=== PATIENT | male | born 1970 | race Caucasian/White ===

== ENCOUNTER 2016-12-21 16:23 | Emergency (ER) | payer MEDICAID ==
[2016-12-21 16:32] VITALS: BP 158/78
[2016-12-21] MEDS ORDERED: LORazepam 1 MG Tab PO ONE ×2 (16:51→18:10)
[2016-12-21] MEDS ORDERED: Carbidopa/Levodopa 25-250 MG Tab PO ONE (16:52)
[2016-12-21] MEDS ORDERED: Carbidopa/Levodopa 25-100 MG Tab PO ONE ×2 (17:22→18:09)
--- NOTE | 2016-12-21 18:07 | EDM.PDOC ---
ED HPI GENERAL MEDICAL PROBLEM - General Chief Complaint: General Stated Complaint: [facility] Time Seen by Provider: 12/21/16 16:27 Source of Information: Reports: Patient, EMS History Limitations: Reports: No limitations - History of Present Illness INITIAL COMMENTS - FREE TEXT/NARRATIVE: The patient has early onset parkinson's and he ran out of his carbidopa/ levadopa. It is at 25/100mg. He has been running low and he has been waiting to take it for longer periods and now he is out and he is cramping up and having some contractions in his face. He denies any other symptoms to me. Onset: gradual Duration: Week(s): (1) Location: Reports: generalized Quality: Reports: Ache Severity: moderate Improves with: Reports: None Worsens with: Reports: None Associated Symptoms: Denies: chest pain, nausea/vomiting, shortness of breath Left Arm Pain Score (Numeric/FACES): 6 - Related Data Allergies Allergy/AdvReac Type Severity Reaction Status Date / Time No Known Allergies Allergy Verified 12/21/16 16:32 Home Meds: Home Meds Carbidopa/Levodopa [Carbidopa-Levo 25-250 mg Odt] 1.5 each PO ASDIRECTED [History] Carbidopa/Levodopa [Carbidopa-Levodopa 25-250] 1.5 each PO Q3HR #180 tablet [Rx] Past Medical History Neurological History: Reports: Parkinson's Social & Family History - Tobacco Use Smoking Status *Q: Never Smoker Second Hand Smoke Exposure: No - Caffeine Use Caffeine Use: Reports: None - Recreational Drug Use Recreational Drug Use: No - Living Situation & Occupation Living situation: Reports: single Occupation: unemployed ED ROS GENERAL - Review of Systems Review Of Systems: See Below Constitutional: Reports: no symptoms HEENT: Reports: No symptoms Respiratory: Reports: No Symptoms Cardiovascular: Reports: No symptoms Endocrine: Reports: no symptoms GI/Abdominal: Reports: No symptoms : Reports: no symptoms Musculoskeletal: Reports: no symptoms Skin: Reports: no symptoms Neurological: Reports: Other (Cramping in his arms and legs and face) ED EXAM, GENERAL - Physical Exam Exam: See Below Exam Limited By: No limitations General Appearance: alert, no apparent distress Ears: normal external exam Nose: normal inspection Head: atraumatic, normocephalic Neck: normal inspection Respiratory/Chest: no respiratory distress, lungs clear, normal breath sounds Cardiovascular: regular rate, rhythm, no edema, no murmur GI/Abdominal: soft, non tender, no organomegaly, no mass Back Exam: normal inspection Neurological: other (Contractions to the right side of his face and also both arms and both legs at times.) Course - Vital Signs Last Recorded V/S: Last Vital Signs Temp 97.6 F 12/21/16 16:27 Pulse 93 12/21/16 16:27 Resp 18 12/21/16 16:27 BP 158/78 H 12/21/16 16:27 Pulse Ox 98 12/21/16 16:27 - Orders/Labs/Meds Orders: Active Orders 24 hr Category Date Time Status LORazepam [Ativan] Med 12/21/16 18:10 Once 2 mg PO ONETIME ONE Meds: Medications Discontinued Medications Generic Name Dose Route Start Last Admin Trade Name Freq PRN Reason Stop Dose Admin Carbidopa/Levodopa 1.5 tab 12/21/16 16:52 12/21/16 17:26 Sinemet 25-250 Mg PO 12/21/16 16:53 Not Given ONETIME ONE Carbidopa/Levodopa 2 tab 12/21/16 17:22 12/21/16 17:26 Sinemet 25-100 Mg PO 12/21/16 17:23 2 tab ONETIME ONE Administration Carbidopa/Levodopa 4 tab 12/21/16 18:09 Sinemet 25-100 Mg PO 12/21/16 18:10 ONETIME ONE Lorazepam 1 mg 12/21/16 16:51 12/21/16 17:04 Ativan PO 12/21/16 16:52 1 mg ONETIME ONE Administration - Re-Assessments/Exams Free Text/Narrative Re-Assessment/Exam: 12/21/16 18:04 I ordered ativan 1mg by mouth and carbidopa/levadlpa 25/100mg. We do not carry the 25/250 that he has. He is doing much better now. There are no pharmacies open today. I may need to give him a couple doses until tomorrow. Departure - Departure Time of Disposition: 18:20 Disposition: Home, Self-Care 01 Condition: good Clinical Impression: Parkinsons disease Prescriptions: Carbidopa/Levodopa [Carbidopa-Levodopa 25-250] 1.5 each PO Q3HR #180 tablet Referrals: Ann Marie Sanchez [Physician] - 1 Week Forms: ED Department Discharge Additional Instructions: Take your medication as prescribed. Please return if you are worse. - My Orders Last 24 Hours: My Active Orders 12/21/16 18:10 LORazepam [Ativan] 2 mg PO ONETIME ONE - Assessment/Plan Last 24 Hours: My Active Orders 12/21/16 18:10 LORazepam [Ativan] 2 mg PO ONETIME ONE
== END 2016-12-21 18:47 | disposition home or self-care (01) ==
LOC: JD.ED 16:23
DX: G20 Parkinson's disease (principal)
CPT/HCPCS: 99283; A9270

== ENCOUNTER 2017-03-19 19:39 | Emergency (ER) | payer MEDICAID ==
[2017-03-19 19:46] VITALS: BP 130/85
[2017-03-19] MEDS ORDERED: Carbidopa/Levodopa 25-250 MG Tab PO ONE (20:26)
--- NOTE | 2017-03-19 20:29 | EDM.PDOC ---
ED HPI GENERAL MEDICAL PROBLEM - General Chief Complaint: Medication Administration Stated Complaint: Medication refill Time Seen by Provider: 03/19/17 20:10 Source of Information: Reports: Patient, RN Notes Reviewed History Limitations: Reports: No Limitations - History of Present Illness INITIAL COMMENTS - FREE TEXT/NARRATIVE: 47 year old male with history of parkinsons presents to the ED today requesting a refill of his Sinemet. He takes the 25/250 tablet, 1.5 tablets every 3 hours during the day and 2 at bedtime. He is completely out. He plans to fill the prescription in the morning after he gets paid. He has lived in [place] for nearly 6 months but has not established with a PCP. This is his 3rd visit to the ED requesting medication refill. - Related Data Allergies Allergy/AdvReac Type Severity Reaction Status Date / Time No Known Allergies Allergy Verified 03/19/17 19:46 Home Meds: Home Meds Carbidopa/Levodopa [Carbidopa-Levodopa 25-250] 1.5 each PO ASDIRECTED 03/19/17 [ History] Carbidopa/Levodopa [Carbidopa-Levodopa 25-250] 2 tab PO BID 03/19/17 [History] Carbidopa/Levodopa [Sinemet 25-250 mg] 1.5 tab PO Q3H #30 tablet 03/19/17 [Rx] Past Medical History Neurological History: Reports: Parkinson's Social & Family History - Tobacco Use Smoking Status *Q: Never Smoker Second Hand Smoke Exposure: No - Caffeine Use Caffeine Use: Reports: Soda - Recreational Drug Use Recreational Drug Use: No - Living Situation & Occupation Living situation: Reports: Single Occupation: Unemployed ED ROS GENERAL - Review of Systems Review Of Systems: See Below Constitutional: Reports: No Symptoms. Denies: Fever, Chills Neurological: Reports: Tremors ED EXAM, GENERAL - Physical Exam Exam: See Below Exam Limited By: No Limitations General Appearance: Alert, WD/WN, No Apparent Distress Respiratory/Chest: No Respiratory Distress, Lungs Clear, Normal Breath Sounds Cardiovascular: Regular Rate, Rhythm Neurological: Alert, Oriented, CN II-XII Intact, Normal Cognition, Normal Gait, Other (tremor, more notable on right side. ambulates with steady gait ) Course - Vital Signs Last Recorded V/S: Last Vital Signs Temp 96.9 F 03/19/17 19:43 Pulse 98 03/19/17 19:43 Resp 18 03/19/17 19:43 BP 130/85 03/19/17 19:43 Pulse Ox 98 03/19/17 19:43 - Orders/Labs/Meds Meds: Medications Discontinued Medications Generic Name Dose Route Start Last Admin Trade Name Estela PRN Reason Stop Dose Admin Carbidopa/Levodopa 2 tab 03/19/17 20:26 Sinemet 25-250 Mg PO 03/19/17 20:27 ONETIME ONE - Re-Assessments/Exams Free Text/Narrative Re-Assessment/Exam: We carry Sinimet 25/100 tabs. Will give 2 tabs in the ED and discharge with a prescription. He was educated on the importance of establishing with a primary care. Departure - Departure Time of Disposition: 20:27 Disposition: Home, Self-Care 01 Condition: Good Clinical Impression: Parkinsons disease - Discharge Information Prescriptions: Carbidopa/Levodopa [Sinemet 25-250 mg] 1.5 tab PO Q3H #30 tablet Instructions: Parkinson Disease, [id number] Referrals: PCP,Not In Area [Primary Care Provider] - Forms: ED Department Discharge Additional Instructions: Follow-up in our Medical Clinic next week, call [phone] to set up an appointment to establish care with one of our primary care providers Our business office can help you with finances since you do not have insurance Return to ER as needed
[2017-03-19] MEDS ORDERED: Carbidopa/Levodopa 25-100 MG Tab PO ONE (20:42)
== END 2017-03-19 20:50 | disposition home or self-care (01) ==
LOC: JD.ED 19:39
DX: G20 Parkinson's disease (principal)
CPT/HCPCS: 99282; A9270; 99283

== ENCOUNTER 2017-03-23 18:04 | Emergency (ER) | payer MEDICAID ==
[2017-03-23 18:09] VITALS: BP 129/90
[2017-03-23] MEDS ORDERED: LORazepam 2 MG/ML MDV IVPUSH ONE (18:58)
[2017-03-23] MEDS ORDERED: Carbidopa/Levodopa 25-100 MG Tab PO ONE (19:09)
--- NOTE | 2017-03-23 19:38 | EDM.PDOC ---
ED HPI GENERAL MEDICAL PROBLEM - General Chief Complaint: Behavioral/Psych Stated Complaint: [facility] Time Seen by Provider: 03/23/17 18:37 Source of Information: Reports: Patient, Old Records (recent ER visits) History Limitations: Reports: No Limitations - History of Present Illness INITIAL COMMENTS - FREE TEXT/NARRATIVE: 47-year-old male presents for evaluation treatment of anxiety. Patient arrives via [place] [facility]. States that he has been suffering from anxiety for several years. Reports associated symptoms of chest palpitations and shakiness. Patient states that he has Parkinson's. He isn't seen in the ER on several occasions for refill of his Parkinson's medications. He states he has been out for 2 days. He has been unable to refill his medication as he is not able to afford it. He has not stepped establish with a primary care provider. - Related Data Allergies Allergy/AdvReac Type Severity Reaction Status Date / Time No Known Allergies Allergy Verified 03/26/17 19:36 Home Meds: Home Meds Carbidopa/Levodopa [Carbidopa-Levodopa 25-250] 1.5 tab PO Q3H 03/19/17 [History] Carbidopa/Levodopa [Carbidopa-Levodopa 25-250] 2 each PO BEDTIME 03/19/17 [ History] Past Medical History Neurological History: Reports: Parkinson's Psychiatric History: Reports: Anxiety - Infectious Disease History Infectious Disease History: Reports: Hepatitis C Social & Family History - Tobacco Use Smoking Status *Q: Never Smoker Second Hand Smoke Exposure: No - Caffeine Use Caffeine Use: Reports: Tea - Recreational Drug Use Recreational Drug Use: No - Living Situation & Occupation Living situation: Reports: Single Occupation: Unemployed ED ROS GENERAL - Review of Systems Review Of Systems: See Below Neurological: Reports: Tremors Psychiatric: Reports: Anxiety ED EXAM, BEHAVIORAL HEALTH - Physical Exam Exam: See Below Exam Limited By: No Limitations General Appearance: Alert, WD/WN, No Apparent Distress Respiratory/Chest: No Respiratory Distress, Lungs Clear Cardiovascular: Normal Peripheral Pulses, Regular Rate, Rhythm Neurological: Alert, Normal Mood/Affect, Normal Cognition Psychiatric: Alert, Normal Affect, Normal Cognition, Oriented Skin Exam: Warm, Dry, Normal color COURSE, BEHAVIORAL HEALTH COMP - Course Vital Signs: Last Vital Signs Temp 37.1 C 03/23/17 18:07 Pulse 105 H 03/23/17 18:07 Resp 20 03/23/17 18:07 BP 129/90 03/23/17 18:07 Pulse Ox 95 03/23/17 18:07 Orders, Labs, Meds: Medications Discontinued Medications Generic Name Dose Route Start Last Admin Trade Name Estela PRN Reason Stop Dose Admin Carbidopa/Levodopa 2 tab 03/23/17 19:09 03/23/17 19:38 Sinemet 25-100 Mg PO 03/23/17 19:10 2 tab ONETIME ONE Administration Carbidopa/Levodopa 5 tab 03/23/17 20:43 03/23/17 20:55 Sinemet 10-100 Mg PO 03/23/17 20:44 5 tab ONETIME ONE Administration Lorazepam 1 mg 03/23/17 18:58 03/23/17 19:36 Ativan IVPUSH 03/23/17 18:59 1 mg ONETIME ONE Administration Re-Assessment/Re-Exam: 20:42 Patient is feeling improved after ativan. I will give him 5 sinamet to take home from our supply to get him through until tomorrow. Patient reports he missed his appointment to establish care today but has one scheduled for tomorrow with a provider at [facility]. Discharge instructions as documented. Departure - Departure Time of Disposition: 20:46 Disposition: Home, Self-Care 01 Condition: Good Clinical Impression: Parkinsons disease, Anxiety - Discharge Information Instructions: Parkinson Disease, [id number] Referrals: PCP,Not In Area [Primary Care Provider] - Forms: ED Department Discharge Additional Instructions: You've been provided with some medication for your Parkinson's here in the ER to take home. Take your medication as prescribed. Follow-up with family medicine tomorrow as planned. Please return to ER if your symptoms change or worsen.
[2017-03-23] MEDS ORDERED: Carbidopa/Levodopa 10-100 MG Tab PO ONE (20:43)
== END 2017-03-23 21:00 | disposition home or self-care (01) ==
LOC: JD.ED 18:04
DX: G20 Parkinson's disease (principal); F41.9 Anxiety disorder, unspecified
CPT/HCPCS: 96374; 99284; A9270; J2060

== ENCOUNTER 2017-03-26 19:29 | Emergency (ER) | payer MEDICAID ==
[2017-03-26 19:36] VITALS: BP 143/85
[2017-03-26] MEDS ORDERED: Carbidopa/Levodopa 25-100 MG Tab PO STA (20:08)
[2017-03-26] MEDS ORDERED: LORazepam 1 MG Tab PO STA (20:09)
--- NOTE | 2017-03-26 20:16 | EDM.PDOC ---
ED HPI GENERAL MEDICAL PROBLEM - General Chief Complaint: Behavioral/Psych Stated Complaint: [facility] Time Seen by Provider: 03/26/17 19:39 Source of Information: Reports: Patient, Old Records, RN Notes Reviewed History Limitations: Reports: No Limitations - History of Present Illness INITIAL COMMENTS - FREE TEXT/NARRATIVE: Medical records indicate that the patient was seen in this ED 11/23/2016 for a refill of his Sinemet 25/250. He was given a prescription, +2 refills. He was then seen again in this ED on 12/21/2016, again requesting a refill of his Sinemet 25/250. He was given a prescription for 180 tablets, and referred to Dr. Sanchez is a PCP. He was again seen in this ED 03/19/2017, where he received a refill prescription for 30 tablets of Sinemet 25/250, and again referred to the clinic. He was seen again in this ED on 03/23/2017, complaining of anxiety. He was given a dose of Sinemet and again referred to the clinic. The patient now presents complaining of anxiety and exacerbation of his Parkinson tremor, since yesterday. He reports that his anxiety is causing him to have dyspnea and racing thoughts. He states that he followed up with Dr. Sanchez 2 days ago and was prescribed both Sinemet and Zoloft, but that he did not fill the prescriptions because he does not have any money, and does not expect to have any money until April 04. His last dose of Sinemet was 2 days ago. He has not previously been on Zoloft. He is requesting that we give him Sinemet as well as something (Ativan) for anxiety, to take home. - Related Data Allergies Allergy/AdvReac Type Severity Reaction Status Date / Time No Known Allergies Allergy Verified 03/26/17 19:36 Home Meds: Home Meds Carbidopa/Levodopa [Carbidopa-Levodopa 25-250] 1.5 tab PO Q3H 03/19/17 [History] Carbidopa/Levodopa [Carbidopa-Levodopa 25-250] 2 each PO BEDTIME 03/19/17 [ History] Past Medical History Neurological History: Reports: Parkinson's (since 2006) Psychiatric History: Reports: Anxiety, Depression - Infectious Disease History Infectious Disease History: Reports: Hepatitis C - Past Surgical History Musculoskeletal Surgical History: Reports: ORIF (Left wrist) Social & Family History - Tobacco Use Smoking Status *Q: Never Smoker Second Hand Smoke Exposure: No - Caffeine Use Caffeine Use: Reports: Tea - Alcohol Use Alcohol Use History: No - Recreational Drug Use Recreational Drug Use: No - Living Situation & Occupation Living situation: Reports: (), with Family (Cousin) Occupation: Unemployed ED ROS GENERAL - Review of Systems Review Of Systems: See Below Constitutional: Reports: No Symptoms HEENT: Reports: No Symptoms Respiratory: Reports: Shortness of Breath Cardiovascular: Reports: No Symptoms Endocrine: Reports: No Symptoms GI/Abdominal: Reports: No Symptoms : Reports: No Symptoms Musculoskeletal: Reports: No Symptoms Skin: Reports: No Symptoms Neurological: Reports: Tremors Psychiatric: Reports: Anxiety Hematologic/Lymphatic: Reports: No Symptoms Immunologic: Reports: No Symptoms ED EXAM, GENERAL - Physical Exam Exam: See Below Exam Limited By: No Limitations General Appearance: Alert, WD/WN, No Apparent Distress Eye Exam: Bilateral Eye: Normal Inspection Ears: Normal External Exam, Hearing Grossly Normal Nose: Normal Inspection, No Blood Throat/Mouth: Normal Inspection, Normal Lips, Normal Voice, No Airway Compromise Head: Atraumatic, Normocephalic Neck: Normal Inspection, Full Range of Motion Respiratory/Chest: No Respiratory Distress, Lungs Clear, Normal Breath Sounds, No Accessory Muscle Use Cardiovascular: Normal Peripheral Pulses, Regular Rate, Rhythm, No Gallop, No JVD, No Murmur, No Rub Peripheral Pulses: 4+: Radial (L), Radial (R) GI/Abdominal: Normal Bowel Sounds, Soft, Non-Tender, No Organomegaly, No Distention, No Abnormal Bruit, No Mass (Male) Exam: Deferred Rectal (Males) Exam: Deferred Back Exam: Normal Inspection, Full Range of Motion, NT Extremities: Normal Inspection, Normal Range of Motion, No Pedal Edema, Normal Capillary Refill Neurological: Alert, Oriented, Normal Cognition, No Motor/Sensory Deficits, Other (Resting tremor primarily involving the right hand and right foot) Psychiatric: Normal Affect Skin Exam: Warm, Dry, Intact, Normal Color, No Rash Lymphatic: No Adenopathy Course - Vital Signs Last Recorded V/S: Last Vital Signs Temp 36.6 C 03/26/17 19:33 Pulse 97 03/26/17 19:33 Resp 18 03/26/17 19:33 BP 143/85 H 03/26/17 19:33 Pulse Ox 95 03/26/17 19:33 - Orders/Labs/Meds Meds: Medications Discontinued Medications Generic Name Dose Route Start Last Admin Trade Name Estela WARE Reason Stop Dose Admin Carbidopa/Levodopa 1 tab 03/26/17 20:08 03/26/17 20:51 Sinemet 25-100 Mg PO 03/26/17 20:09 1 tab ONETIME STA Administration Lorazepam 1 mg 03/26/17 20:09 03/26/17 20:51 Ativan PO 03/26/17 20:10 1 mg ONETIME STA Administration - Re-Assessments/Exams Free Text/Narrative Re-Assessment/Exam: 03/27/17 20:07 The patient ordinarily takes Sinemet 25/250 several times a day, however, this facility does not carry that formulation. We have the 25/100 tablets. I have ordered 2 tablets, along with 1 mg of oral Ativan, however, I explained to the patient that we cannot dispense medications for the patient to take home. He already has prescriptions for Sinemet and Zoloft, he said he does not have the money to buy them. I will refer him to social work job titles, as the patient likely meets criterion for disability and would therefore be eligible for disability benefits. Departure - Departure Time of Disposition: 20:12 Disposition: Home, Self-Care 01 Condition: Good Clinical Impression: Parkinson disease, symptomatic, Anxiety - Discharge Information Instructions: Panic Attacks, [id number], Parkinson Disease, [id number] Referrals: Ann Marie Sanchez [Physician] - Forms: ED Department Discharge Additional Instructions: You were seen in the emergency room for symptoms of Parkinson disease and anxiety. You have been given a single dose of Sinemet, and a single dose of Ativan. The emergency room cannot, however, dispense these medicines for you to take home. Please contact [facility] Personnel Administrator at [phone] to discuss getting disability benefits. Fill your prescriptions for Sinemet and Zoloft at the next available opportunity , and take them as prescribed. If any other problems, please do not hesitate to return to the ER.
== END 2017-03-26 20:58 | disposition home or self-care (01) ==
LOC: JD.ED 19:29
DX: F41.9 Anxiety disorder, unspecified (principal); G20 Parkinson's disease; F32.9 Major depressive disorder, single episode, unspecified; Z98.890 Other specified postprocedural states
CPT/HCPCS: 99283; A9270

== ENCOUNTER 2017-03-27 17:09 | Emergency (ER) | payer MEDICAID ==
[2017-03-27 17:23] VITALS: BP 126/106
[2017-03-27] MEDS ORDERED: LORazepam 2 MG/ML MDV IVPUSH ONE (18:25)
[2017-03-27] MEDS ORDERED: Carbidopa/Levodopa 25-250 MG Tab PO ONE (18:26)
--- NOTE | 2017-03-27 18:48 | EDM.PDOC ---
<Andreea Walker - Last Filed: 03/27/17 19:16> ED HPI GENERAL MEDICAL PROBLEM - General Chief Complaint: Behavioral/Psych Stated Complaint: [facility] Time Seen by Provider: 03/27/17 17:26 Source of Information: Reports: Patient History Limitations: Reports: No Limitations - History of Present Illness INITIAL COMMENTS - FREE TEXT/NARRATIVE: 47 y/o M brought in by ambulance. Patient has a hx of Parkinson's. Has been seen multiple times this week. Is out of his carbidopa/levodopa. Feeling very anxious. States he lives with his cousin but his cousin has been out of town for a week. Arturo has been out of his meds x at least a week. He isn't really able to explain to me why he hasn't been able to get them. States his tremor is worse than ever. Has been feeling extremely anxious this week. Has had multiple ED visits for anxiety. He is extremely anxious at the time of my interview which limits the history. Told nurse that he hit himself with a bat earlier today. Was not specifically suicidal, but can't explain to me why he did this. Denies recent illness. No recent fever or injury. States his clinic provider prescribed zoloft but he has also been unable to fill this med. Patient is crying, anxious, doesn't answer all of my questions which limits the history at this time. Denied hallucinations or hearing voices to me. Head Pain Score (Numeric/FACES): 5 - Related Data Allergies Allergy/AdvReac Type Severity Reaction Status Date / Time No Known Allergies Allergy Verified 03/27/17 17:17 Home Meds: Home Meds Carbidopa/Levodopa [Carbidopa-Levodopa 25-250] 1.5 tab PO Q3H 03/19/17 [History] Carbidopa/Levodopa [Carbidopa-Levodopa 25-250] 2 each PO BEDTIME 03/19/17 [ History] Past Medical History Neurological History: Reports: Parkinson's Psychiatric History: Reports: Anxiety, Depression - Infectious Disease History Infectious Disease History: Reports: Hepatitis C - Past Surgical History Musculoskeletal Surgical History: Reports: ORIF Social & Family History - Tobacco Use Smoking Status *Q: Unknown Ever Smoked Second Hand Smoke Exposure: No - Caffeine Use Caffeine Use: Reports: Tea - Recreational Drug Use Recreational Drug Use: Yes Drug Use in Last 12 Months: No - Living Situation & Occupation Living situation: Reports: (), with Family (Cousin) Occupation: Unemployed ED ROS GENERAL - Review of Systems Review Of Systems: See Below Constitutional: Denies: Fever HEENT: Reports: No Symptoms Respiratory: Denies: Cough Cardiovascular: Denies: Chest Pain GI/Abdominal: Denies: Vomiting Neurological: Reports: Tremors Psychiatric: Reports: Agitation, Anxiety ED EXAM, BEHAVIORAL HEALTH - Physical Exam Exam: See Below Exam Limited By: No Limitations General Appearance: Alert, WD/WN, Anxious, Moderate Distress Eye Exam: Bilateral Eye: Normal Inspection Ears: Normal External Exam Nose: Normal Inspection, Normal Mucosa, No Blood Throat/Mouth: Normal Inspection, Normal Voice Head: Atraumatic, Normocephalic Neck: Normal Inspection Respiratory/Chest: No Respiratory Distress, Lungs Clear Cardiovascular: Normal Peripheral Pulses GI/Abdominal: Soft, Non-Tender Extremities: Other (marked tremor of RUE and RLE) Neurological: Alert, Normal Cognition, Oriented x 3 Psychiatric: Alert, Restless, Tearful, Other (cooperative) Skin Exam: Warm, Dry, Intact, Normal color, No rash COURSE, BEHAVIORAL HEALTH COMP - Course Vital Signs: Last Vital Signs Temp 97.7 F 03/27/17 17:18 Pulse 93 03/27/17 17:18 Resp 16 03/27/17 17:18 BP 126/106 H 03/27/17 17:18 Pulse Ox 96 03/27/17 17:18 Orders, Labs, Meds: Laboratory Tests 03/27/17 03/27/17 03/27/17 Range/Units 18:30 18:30 18:30 WBC 6.85 (4.23-9.07) K/mm3 RBC 5.12 (4.63-6.08) M/mm3 Hgb 15.4 (13.7-17.5) gm/L Hct 45.0 (40.1-51.0) % MCV 87.9 (79.0-92.2) fl MCH 30.1 (25.7-32.2) pg MCHC 34.2 (32.2-35.5) g/dl RDW Std Deviation 40.6 (35.1-43.9) fL Plt Count 274 (163-337) K/mm3 MPV 8.6 L (9.4-12.3) fl Neut % (Auto) 64.5 (34.0-67.9) % Lymph % (Auto) 23.8 (21.8-53.1) % [place] % (Auto) 9.6 (5.3-12.2) % Eos % (Auto) 1.8 (0.8-7.0) Baso % (Auto) 0.3 (0.1-1.2) % Neut # (Auto) 4.42 (1.78-5.38) K/mm3 Lymph # (Auto) 1.63 (1.32-3.57) K/mm3 [place] # (Auto) 0.66 (0.30-0.82) K/mm3 Eos # (Auto) 0.12 (0.04-0.54) K/mm3 Baso # (Auto) 0.02 (0.01-0.08) K/mm3 Sodium 139 (136-145) mEq/L Potassium 4.1 (3.5-5.1) mEq/L Chloride 102 (98-107) mEq/L Carbon Dioxide 26 (21-32) mEq/L Anion Gap 15.1 H (5-15) BUN 19 H (7-18) mg/dL Creatinine 1.0 (0.7-1.3) mg/dL Est Cr Clr Drug Dosing 92.30 mL/min Estimated GFR (MDRD) > 60 (>60) mL/min BUN/Creatinine Ratio 19.0 H (14-18) Glucose 104 (74-106) mg/dL Calcium 8.8 (8.5-10.1) mg/dL Total Bilirubin 0.6 (0.2-1.0) mg/dL AST 19 (15-37) U/L ALT 28 (16-63) U/L Alkaline Phosphatase 76 (46-116) U/L Total Protein 7.7 (6.4-8.2) g/dl Albumin 4.3 (3.4-5.0) g/dl Globulin 3.4 gm/dL Albumin/Globulin Ratio 1.3 (1-2) Free T4 1.16 (0.76-1.46) ng/dL TSH 3rd Generation 1.051 (0.358-3.74) uIU/mL Salicylates 1.5 L (2.8-20) mg/dL Urine Opiates Screen (NEGATIVE) Ur Buprenorphine Scrn (NEGATIVE) Ur Oxycodone Screen (NEGATIVE) Urine Methadone Screen (NEGATIVE) Ur Propoxyphene Screen (NEGATIVE) Acetaminophen 0 L (10-30) ug/mL Ur Barbiturates Screen (NEGATIVE) Ur Tricyclics Screen (NEGATIVE) Ur Phencyclidine Scrn (NEGATIVE) Ur Amphetamine Screen (NEGATIVE) U Methamphetamines Scrn (NEGATIVE) U Benzodiazepines Scrn (NEGATIVE) U Cocaine Metab Screen (NEGATIVE) U Marijuana (THC) Screen (NEGATIVE) Ethyl Alcohol 0.00 (0.00) gm% 03/27/17 Range/Units 18:45 WBC (4.23-9.07) K/mm3 RBC (4.63-6.08) M/mm3 Hgb (13.7-17.5) gm/L Hct (40.1-51.0) % MCV (79.0-92.2) fl MCH (25.7-32.2) pg MCHC (32.2-35.5) g/dl RDW Std Deviation (35.1-43.9) fL Plt Count (163-337) K/mm3 MPV (9.4-12.3) fl Neut % (Auto) (34.0-67.9) % Lymph % (Auto) (21.8-53.1) % [place] % (Auto) (5.3-12.2) % Eos % (Auto) (0.8-7.0) Baso % (Auto) (0.1-1.2) % Neut # (Auto) (1.78-5.38) K/mm3 Lymph # (Auto) (1.32-3.57) K/mm3 [place] # (Auto) (0.30-0.82) K/mm3 Eos # (Auto) (0.04-0.54) K/mm3 Baso # (Auto) (0.01-0.08) K/mm3 Sodium (136-145) mEq/L Potassium (3.5-5.1) mEq/L Chloride (98-107) mEq/L Carbon Dioxide (21-32) mEq/L Anion Gap (5-15) BUN (7-18) mg/dL Creatinine (0.7-1.3) mg/dL Est Cr Clr Drug Dosing mL/min Estimated GFR (MDRD) (>60) mL/min BUN/Creatinine Ratio (14-18) Glucose (74-106) mg/dL Calcium (8.5-10.1) mg/dL Total Bilirubin (0.2-1.0) mg/dL AST (15-37) U/L ALT (16-63) U/L Alkaline Phosphatase (46-116) U/L Total Protein (6.4-8.2) g/dl Albumin (3.4-5.0) g/dl Globulin gm/dL Albumin/Globulin Ratio (1-2) Free T4 (0.76-1.46) ng/dL TSH 3rd Generation (0.358-3.74) uIU/mL Salicylates (2.8-20) mg/dL Urine Opiates Screen Negative (NEGATIVE) Ur Buprenorphine Scrn Negative (NEGATIVE) Ur Oxycodone Screen Negative (NEGATIVE) Urine Methadone Screen Negative (NEGATIVE) Ur Propoxyphene Screen Negative (NEGATIVE) Acetaminophen (10-30) ug/mL Ur Barbiturates Screen Negative (NEGATIVE) Ur Tricyclics Screen Negative (NEGATIVE) Ur Phencyclidine Scrn Negative (NEGATIVE) Ur Amphetamine Screen Negative (NEGATIVE) U Methamphetamines Scrn Negative (NEGATIVE) U Benzodiazepines Scrn Negative (NEGATIVE) U Cocaine Metab Screen Negative (NEGATIVE) U Marijuana (THC) Screen Negative (NEGATIVE) Ethyl Alcohol (0.00) gm% Medications Discontinued Medications Generic Name Dose Route Start Last Admin Trade Name Freq PRN Reason Stop Dose Admin Carbidopa/Levodopa 1 tab 03/27/17 18:26 Sinemet 25-250 Mg PO 03/27/17 18:27 ONETIME ONE Carbidopa/Levodopa 1 tab 03/27/17 19:12 03/27/17 19:23 Sinemet 25-100 Mg PO 03/27/17 19:13 1 tab ONETIME ONE Administration Lorazepam 1 mg 03/27/17 18:25 03/27/17 18:41 Ativan IVPUSH 03/27/17 18:26 1 mg ONETIME ONE Administration Re-Assessment/Re-Exam: Ordered 1 mg ativan for anxiety. Discussed with Dr. Vaz who will eval patient. Signed out to Dr. Ronquillo who will follow-up Dr. Vaz's recommendations. Departure - Departure Disposition: DC/Tfer to [facility] Clinical Impression: Acute psychosis, Auditory hallucinations, Visual hallucinations, Self-harming behavior, Parkinsons disease, Anxiety - Discharge Information Additional Instructions: Patient will be transported by the [facility] to [facility] in [place]. They're to go through the ER for evaluation and then admission to the psych zaragoza with Dr. Islas being the accepting physician. <Arcadio Ronquillo - Last Filed: 03/27/17 21:19> COURSE, BEHAVIORAL HEALTH COMP - Course Re-Assessment/Re-Exam: Dr. Vaz interviewed the patient and feels the patient is actively psychotic with auditory and visual hallucinations. The patient is not saying he is suicidal but he has thoughts of hitting his head with a baseball bat. Dr. Vaz felt it would be a good idea to admit this patient to a psych bed for further evaluation and treatment. The patient is agreeable to that at this time. It should be noted he is also meth dependent though he states he hasn't taken methadone a long time but then he changes his story and states he has charges pending in [place] regarding his meth use. Presently the patient is somewhat calm he did receive a milligram of Ativan for his anxiety and seems to have helped out. We will attempt to find a psych bed for him and make a committal for him. 20:39 03/27/2017 surgical services director television presenter came in and found a bed for this patient at [facility] in [place]. I spoke to Dr. Islas who was the psychiatrist television presenter and she agrees to accept this patient in transport for further evaluation and treatment. The patient will go in through the ER and be admitted to the psych floor. I did speak to the patient regarding this he is calm not anxious any longer he is willing to go to [facility] in [place] for treatment and help and to get him back on his Parkinson's medications to stabilize that as well. 21:17 03/27/2017 [facility] will come and pick this patient up for transport to [facility]. Departure - Departure Time of Disposition: 21:18 Condition: Good
[2017-03-27] MEDS ORDERED: Carbidopa/Levodopa 25-100 MG Tab PO ONE (19:12)
[2017-03-27 19:36] LABS: ACETAMINOPHEN 0 ug/mL (10-30)
--- NOTE | 2017-03-27 21:02 | CONS ---
CONSULTING PHYSICIAN: Arcadio Vaz MD DATE OF CONSULTATION: 03/27/2017 IDENTIFICATION: The patient is a 47-year-old male, presents to the emergency room at [facility] in [place], [place] earlier this evening and he is seen now for psychiatric evaluation. CHIEF COMPLAINT: "Just the anxiety and issues on having controlling my body." HISTORY OF PRESENT ILLNESS: The patient is a 47-year-old male who reports he has been struggling with increased anxiety and increased tremor that he is believing is coming from worsening Parkinson's. The patient does not have insurance and he states that he ran out of his Parkinson's medications and he has not been able to get them because he does not have the money to buy them. He has also been having severe anxiety and staff is noting that this is his fourth visit to the ER in 8 days. He states that he feels depressed and he notes "I have not slept in 4 days." He states he recently moved to the area from [place], [place], just a few months ago and he has been living with his cousin. He states that she works longer hours at a job at a local [employer] and so he is alone a lot of time and at this point, he is not feeling good at all. He states "I am not sure what to do with myself. I feel loss, I am all alone, I am about ready to lose it." Indeed the patient goes on to note that he has been having thoughts "to hit myself in the head with a bat" and even though he does not really state that it is suicidal in nature, he definitely wants to do this or has been having thoughts of it, he has been holding off on this act. He also notes that complicating his clinical picture is the fact that he has been experiencing auditory hallucinations and possible visual hallucinations for "a few years actually." He states "the voices are real, there is somebody in my mind." He denies any illicit substance use or excessive alcohol is complicating his clinical picture at this point in time, but he states he has a long history of methamphetamine use and has been through 2 treatments for this chemical dependency. At first, the patient states he has not used in about 5 years, but then during the course of the interview, he does acknowledge that he may have used more recently than that and when pressed for specifics, he states "well I did use some back in August" 2015. He also acknowledges significant mood swings. He denies having any weapons at his house. MEDICATIONS: At the time of presentation, none. Evidently, the patient is supposed to be on carbidopa, levodopa. He has also been prescribed Zoloft, but he never filled the prescription. ALLERGIES: No known drug allergies. PAST MEDICAL HISTORY: 1. Parkinson's. The patient has been diagnosed with this for 10 years according to his report. 2. Hepatitis C. 3. Status post broken left arm in 2006. REVIEW OF SYSTEMS: Aside from neuro, hepatic, and musculoskeletal, all other major organ systems are negative at this time for acute difficulties or complications. FAMILY, PSYCHIATRIC, AND CD HISTORY: The patient reports he had a brother who had schizophrenia and who committed suicide back in 2006. PAST PSYCHIATRIC AND CD HISTORY: THE patient reports 3 psychiatric hospitalizations, last one being in 2014 in [place], [place]. He reports 2 chemical dependency treatments "years ago." He states that he uses 1 can of tobacco a week and he states he last used meth back in August 2016. Denies any suicide attempts previously. Denies any self- injurious behaviors. Denies any eating disorder history. Denies any abuse issues but does report that his father was killed when the patient was 9 years of age by drowning and the patient did witness this and he thinks about this quite a bit. Received some counseling for this in the past. PAST PSYCHIATRIC MEDICATION HISTORY: Includes Ativan, which has helped the patient, and Seroquel which did not help the patient. PRIMARY CARE PHYSICIAN: Dr. Victoria out of [facility]. SOCIAL HISTORY: The patient was born and raised in [facility]. He is the second of 3 siblings, he has 1 brother and 1 sister. The patient's parents were until the patient was 9 years of age when his father drowned. Father was a crane crew supervisor. Mother worked in a [employer] shop. The patient's highest level of education is GED. 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 He has been x1, but for the past 8 years. He has 3 children from the marriage and 2 children from another relationship. He lives in [place], [place] with a cousin. He has been in the area for the past 2 months. Denies any prior service. He states he may be facing some possible legal charges for meth use at the end of 2016. 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 He enjoys fishing. MENTAL STATUS EXAM: The patient is a 47-year-old white male, in no apparent distress. Speech is of regular rate and rhythm. The patient is cognitively oriented. Psychomotor activity is within normal limits. The patient does have a noticeable right hand tremor on interview. The patient is cognitively oriented, gait and station are not observed. This patient is sitting on gurney for the course of the emergency room consult. Mood is anxious and depressed. Affect is consistent with stated mood restricted but cooperative overall for the purposes of the emergency room consult. Thought content is significant for auditory hallucinations, possible visual hallucinations. The patient is also experiencing some possible suicidal ideation and a minimum self-injurious ideation. Denies any homicidal ideation. Thought processes are significant for racing thoughts and ruminations. There is no acute manic symptoms or loose associations evident. Judgment and insight appear impaired at this point in time. Motivation for help appears fair to good. Vital signs are stable at the time of presentation. IMPRESSION: [place] I. 1. Psychosis, NOS, F29. 2. Major depressive disorder, F33.3. 3. Anxiety disorder, NOS, F41.9. 4. Rule out PTSD, F43.10. 5. Past history of methamphetamine dependence. [place] II: None. [place] III: 1. Parkinson disease x10 years. 2. Hepatitis C. 3. Status post broken left arm in 2006. [place] IV: Severe. [place] V: 50. PLAN: 1. Obtain U-tox to rule out any recent meth use or illicit substance use or alcohol use complicating the patient's clinical picture and presentation. 2. Sobriety. 3. Once the patient is cleared medically, we would recommend transferring to inpatient psych for further psychiatric stabilization of his psychotic, depressive, and anxious symptoms. 4. We would also obtain a neuro consult. 5. We do recommend the patient be maintained on one-to-one while in the ER prior to transfer while he is being medically cleared. 6. We would give the patient Ativan p.r.n. in the emergency room zaragoza as needed to help with acute anxiety symptoms. 7. If need be, the patient tries to leave AMA, he is holdable at this point in time given the fact that he is definitely a danger to himself and possibly others in his current condition. 8. We will follow up with the patient on an as needed basis while he remains on the emergency room zaragoza. 9. We will follow up with the patient sooner if any complications in the interim. 10.I would also recommend that the patient have chemical dependency consult while he is on the inpatient psych unit and prior to being discharged back to community. 11.Crisis plan is in place. EZEQUIEL /[id number]
== END 2017-03-27 21:46 ==
LOC: JD.ED 17:09
DX: F29 Unspecified psychosis not due to a substance or known physiological condition (principal); G20 Parkinson's disease; F41.9 Anxiety disorder, unspecified; Z72.89 Other problems related to lifestyle
CPT/HCPCS: 36415; 80053; 80306; 84439; 84443; 85025; 96374; 99285; A9270; G0480; J2060; 99284

== ENCOUNTER 2017-04-08 23:30 | Emergency (ER) | payer MEDICAID ==
[2017-04-08 23:38] VITALS: BP 103/77
--- NOTE | 2017-04-09 00:36 | EDM.PDOC ---
ED HPI GENERAL MEDICAL PROBLEM - General Chief Complaint: Behavioral/Psych Stated Complaint: [facility] Time Seen by Provider: 04/09/17 00:18 - History of Present Illness INITIAL COMMENTS - FREE TEXT/NARRATIVE: 47-year-old male presents emergency room brought in by EMS with a suspected reaction from his Parkinson's medication. Patient denies taking too many of his medications for Parkinson's. He's had Parkinson's approximately 10 years. The patient is been outside all day and probably has not been drinking enough water. He denies any drugs or alcohol. He has not had any recent trauma and denies any new or unusual pain. The patient uses his carbidopa levodopa every 4 hours. And it usually works fairly well. Patient denies any recent illnesses. He is concerned he might be a little dehydrated because he's been outside the last couple of days and probably has not been drinking enough fluids. - Related Data Allergies Allergy/AdvReac Type Severity Reaction Status Date / Time No Known Allergies Allergy Verified 03/27/17 17:17 Home Meds: Home Meds Carbidopa/Levodopa [Carbidopa-Levodopa 25-250] 1.5 tab PO Q3H 03/19/17 [History] Past Medical History Gastrointestinal History: Reports: Chronic Constipation Neurological History: Reports: Parkinson's Psychiatric History: Reports: Anxiety, Depression - Infectious Disease History Infectious Disease History: Reports: Hepatitis C - Past Surgical History Musculoskeletal Surgical History: Reports: ORIF Social & Family History - Family History Family Medical History: Noncontributory - Tobacco Use Smoking Status *Q: Former Smoker Used Tobacco, but Quit: Yes Month Tobacco Last Used: october Second Hand Smoke Exposure: No - Caffeine Use Caffeine Use: Reports: Soda - Recreational Drug Use Recreational Drug Use: No Drug Use in Last 12 Months: No Recreational Drug Type: Reports: Marijuana/Hashish, Methamphetamine - Living Situation & Occupation Living situation: Reports: (), with Family (Cousin) Occupation: Unemployed ED ROS GENERAL - Review of Systems Review Of Systems: See Below Constitutional: Reports: No Symptoms. Denies: Fever, Chills HEENT: Reports: No Symptoms Respiratory: Reports: No Symptoms Cardiovascular: Reports: No Symptoms GI/Abdominal: Reports: Constipation. Denies: Abdominal Pain, Black Stool, Diarrhea, Decreased Appetite, Nausea, Vomiting : Reports: No Symptoms Musculoskeletal: Reports: Joint Pain, Joint Swelling Skin: Reports: No Symptoms Psychiatric: Denies: Homicidal Ideation, Mood Lability, Suicidal Ideation ED EXAM, GENERAL - Physical Exam Exam: See Below Exam Limited By: No Limitations General Appearance: Alert, No Apparent Distress Eye Exam: Bilateral Eye: EOMI, Normal Inspection, PERRL Ears: Normal External Exam, Normal Canal, Normal TMs Nose: Normal Inspection, Normal Mucosa, No Blood Throat/Mouth: Normal Inspection, Normal Lips, Normal Gums, Normal Oropharynx, No Airway Compromise Neck: Normal Inspection, Supple, Non-Tender, Full Range of Motion Respiratory/Chest: No Respiratory Distress, Lungs Clear, Normal Breath Sounds Cardiovascular: Regular Rate, Rhythm, No Edema, No Murmur GI/Abdominal: Normal Bowel Sounds, Soft, Non-Tender Back Exam: Normal Inspection. No: CVA Tenderness (L), CVA Tenderness (R) Extremities: Normal Inspection, Normal Range of Motion, Non-Tender, No Pedal Edema Neurological: Alert, Oriented, Other (Upon arrival to the emergency department the patient seems like he could be under the effect of stimulant however this did improve over time) Skin Exam: Warm, Dry, Intact, Tattoo(s) Course - Vital Signs Last Recorded V/S: Last Vital Signs Temp 36.3 C 04/08/17 23:34 Pulse 104 H 04/08/17 23:34 Resp 18 04/08/17 23:34 BP 103/77 04/08/17 23:34 Pulse Ox 98 04/08/17 23:34 - Orders/Labs/Meds Orders: Active Orders 24 hr Category Date Time Status MYOGLOBIN,URN Stat Lab 04/09/17 00:30 Received Labs: Laboratory Tests 04/09/17 04/09/17 04/09/17 Range/Units 00:30 00:30 01:04 WBC 10.94 H (4.23-9.07) K/mm3 RBC 4.50 L (4.63-6.08) M/mm3 Hgb 13.6 L (13.7-17.5) gm/L Hct 40.1 (40.1-51.0) % MCV 89.1 (79.0-92.2) fl MCH 30.2 (25.7-32.2) pg MCHC 33.9 (32.2-35.5) g/dl RDW Std Deviation 42.3 (35.1-43.9) fL Plt Count 244 (163-337) K/mm3 MPV 8.8 L (9.4-12.3) fl Neutrophils % (Manual) 84 H (40-60) % Band Neutrophils % 0 (0-10) % Lymphocytes % (Manual) 10 L (20-40) % Atypical Lymphs % 0 % Monocytes % (Manual) 6 (2-10) % Eosinophils % (Manual) 0 L (0.8-7.0) % Basophils % (Manual) 0 L (0.2-1.2) Platelet Estimate Adequate Plt Morphology Comment Normal RBC Morph Comment Normal Sodium (136-145) mEq/L Potassium (3.5-5.1) mEq/L Chloride (98-107) mEq/L Carbon Dioxide (21-32) mEq/L Anion Gap (5-15) BUN (7-18) mg/dL Creatinine (0.7-1.3) mg/dL Est Cr Clr Drug Dosing mL/min Estimated GFR (MDRD) (>60) mL/min BUN/Creatinine Ratio (14-18) Glucose (74-106) mg/dL Calcium (8.5-10.1) mg/dL Total Bilirubin (0.2-1.0) mg/dL AST (15-37) U/L ALT (16-63) U/L Alkaline Phosphatase (46-116) U/L Total Protein (6.4-8.2) g/dl Albumin (3.4-5.0) g/dl Globulin gm/dL Albumin/Globulin Ratio (1-2) Urine Color Dark yellow (Yellow) Urine Appearance Clear (Clear) Urine pH 5.5 (5.0-8.0) Ur Specific [place] > or = 1.030 (1.005-1.030) Urine Protein 1+ H (Negative) Urine Glucose (UA) Negative (Negative) Urine Ketones 1+ H (Negative) Urine Occult Blood Negative (Negative) Urine Nitrite Negative (Negative) Urine Bilirubin 1+ H (Negative) Urine Urobilinogen 0.2 (0.2-1.0) Ur Leukocyte Esterase Negative (Negative) Urine RBC 0-5 (0-5) /hpf Urine WBC 0-5 (0-5) /hpf Ur Epithelial Cells 0-5 (0-5) /hpf Amorphous Sediment Few H (NOT SEEN) /hpf Urine Bacteria Moderate H (FEW) /hpf Fine Granular Casts 5-10 H (0-5) /lpf Urine Mucus Many H (FEW) /hpf Urine Opiates Screen Negative (NEGATIVE) Ur Buprenorphine Scrn Negative (NEGATIVE) Ur Oxycodone Screen Negative (NEGATIVE) Urine Methadone Screen Negative (NEGATIVE) Ur Propoxyphene Screen Negative (NEGATIVE) Ur Barbiturates Screen Negative (NEGATIVE) Ur Tricyclics Screen Negative (NEGATIVE) Ur Phencyclidine Scrn Negative (NEGATIVE) Ur Amphetamine Screen Negative (NEGATIVE) U Methamphetamines Scrn Presumptive positive H (NEGATIVE) U Benzodiazepines Scrn Negative (NEGATIVE) U Cocaine Metab Screen Negative (NEGATIVE) U Marijuana (THC) Screen Negative (NEGATIVE) Ethyl Alcohol (0.00) gm% /03/21 Range/Units 01:19 WBC (4.23-9.07) K/mm3 RBC (4.63-6.08) M/mm3 Hgb (13.7-17.5) gm/L Hct (40.1-51.0) % MCV (79.0-92.2) fl MCH (25.7-32.2) pg MCHC (32.2-35.5) g/dl RDW Std Deviation (35.1-43.9) fL Plt Count (163-337) K/mm3 MPV (9.4-12.3) fl Neutrophils % (Manual) (40-60) % Band Neutrophils % (0-10) % Lymphocytes % (Manual) (20-40) % Atypical Lymphs % % Monocytes % (Manual) (2-10) % Eosinophils % (Manual) (0.8-7.0) % Basophils % (Manual) (0.2-1.2) Platelet Estimate Plt Morphology Comment RBC Morph Comment Sodium 137 (136-145) mEq/L Potassium 4.0 (3.5-5.1) mEq/L Chloride 100 (98-107) mEq/L Carbon Dioxide 25 (21-32) mEq/L Anion Gap 16.0 H (5-15) BUN 28 H (7-18) mg/dL Creatinine 1.3 (0.7-1.3) mg/dL Est Cr Clr Drug Dosing 71.00 mL/min Estimated GFR (MDRD) 59 (>60) mL/min BUN/Creatinine Ratio 21.5 H (14-18) Glucose 91 (74-106) mg/dL Calcium 9.5 (8.5-10.1) mg/dL Total Bilirubin 1.8 H (0.2-1.0) mg/dL AST 60 H (15-37) U/L ALT 16 (16-63) U/L Alkaline Phosphatase 70 (46-116) U/L Total Protein 7.8 (6.4-8.2) g/dl Albumin 4.6 (3.4-5.0) g/dl Globulin 3.2 gm/dL Albumin/Globulin Ratio 1.4 (1-2) Urine Color (Yellow) Urine Appearance (Clear) Urine pH (5.0-8.0) Ur Specific [place] (1.005-1.030) Urine Protein (Negative) Urine Glucose (UA) (Negative) Urine Ketones (Negative) Urine Occult Blood (Negative) Urine Nitrite (Negative) Urine Bilirubin (Negative) Urine Urobilinogen (0.2-1.0) Ur Leukocyte Esterase (Negative) Urine RBC (0-5) /hpf Urine WBC (0-5) /hpf Ur Epithelial Cells (0-5) /hpf Amorphous Sediment (NOT SEEN) /hpf Urine Bacteria (FEW) /hpf Fine Granular Casts (0-5) /lpf Urine Mucus (FEW) /hpf Urine Opiates Screen (NEGATIVE) Ur Buprenorphine Scrn (NEGATIVE) Ur Oxycodone Screen (NEGATIVE) Urine Methadone Screen (NEGATIVE) Ur Propoxyphene Screen (NEGATIVE) Ur Barbiturates Screen (NEGATIVE) Ur Tricyclics Screen (NEGATIVE) Ur Phencyclidine Scrn (NEGATIVE) Ur Amphetamine Screen (NEGATIVE) U Methamphetamines Scrn (NEGATIVE) U Benzodiazepines Scrn (NEGATIVE) U Cocaine Metab Screen (NEGATIVE) U Marijuana (THC) Screen (NEGATIVE) Ethyl Alcohol 0.00 (0.00) gm% Meds: Medications Discontinued Medications Generic Name Dose Route Start Last Admin Trade Name Freq PRN Reason Stop Dose Admin Lactated Ringer's 1,000 mls @ 999 mls/hr 04/09/17 01:29 04/09/17 01:34 Ringers, Lactated IV 04/09/17 02:29 999 mls/hr .BOLUS ONE Administration Lactated Ringer's 1,000 mls @ 999 mls/hr 04/09/17 02:40 04/09/17 02:44 Ringers, Lactated IV 04/09/17 03:40 999 mls/hr .BOLUS ONE Administration - Re-Assessments/Exams Free Text/Narrative Re-Assessment/Exam: 04/09/17 04:02 Patient has done well in the emergency department he's been stable he's been resting comfortably. Upon arrival to the emergency department the patient did seem like he was under the effect of stimulant this did improve over time. Patient has received 2 L of LR. I did discuss his toxicology with him in the positive methamphetamine and he does not have any idea how this got into a system. He agrees to go home and push lots of fluids. He also agrees to return to the emergency room with any questions or problems. Departure - Departure Time of Disposition: 04:03 Disposition: Home, Self-Care 01 Clinical Impression: Dehydration - Discharge Information Instructions: Dehydration, Adult, [id number] Referrals: PCP,Not In Area [Primary Care Provider] - Forms: ED Department Discharge Additional Instructions: Return to the emergency room with any questions problems or worsening symptoms. Push lots of fluids drink so you are voiding every hour to hour and a half while you're awake. Follow-up in the Hospital clinic on Thursday for recheck [phone] - My Orders Last 24 Hours: My Active Orders 04/09/17 00:30 MYOGLOBIN,URN Stat - Assessment/Plan Last 24 Hours: My Active Orders 04/09/17 00:30 MYOGLOBIN,URN Stat
[2017-04-09] MEDS ORDERED: Lactated Ringers 1,000 ML IV ONE ×2 (01:29→02:40)
== END 2017-04-09 04:17 | disposition home or self-care (01) ==
LOC: JD.ED 23:30
DX: E86.0 Dehydration (principal); Z98.890 Other specified postprocedural states; Z87.891 Personal history of nicotine dependence
CPT/HCPCS: 36415; 80053; 80306; 81001; 83874; 85025; 96360; 96361; 99285; G0480; J7120; 99284